=== PATIENT | male | born 1960 | race Caucasian/White ===

== ENCOUNTER 2016-11-15 10:30 | Inpatient (IN) | payer OTHER ==
[~2016-11-15] VITALS: Ht 180.3 cm; Wt 102.1 kg
[~2016-11-15 10:30] MED LIST: ALTACE5 MG PO; AMARYL 2 MG2 MG PO; ESCITALOPRAM10 MG PO; HEP-FORTE1 CAP PO; LEVOTHYROXIN0.175 MG PO; PREDNISONE 20MG20 MG PO; VAYAROL 232.5 M1 CAP PO; [UNRECOGNIZED DRUG - CODE] PO
--- NOTE | 2016-11-15 11:03 | ED CARDIAC/CP/PALPITATIONS ---
History of Present Illness General Chief Complaint: Chest Pain Stated Complaint: CHEST PRESSURE Source: patient Exam Limitations: no limitations Vital Signs & Intake/Output Vital Signs & Intake/Output Vital Signs Date Time Temp Pulse Resp B/P B/P Pulse O2 O2 Flow FiO2 Mean Ox Delivery Rate 11/15 1500 97.9 64 18 146/84 98 Room Air 11/15 1411 72 18 141/87 98 Room Air 11/15 1330 69 18 149/83 98 Room Air 11/15 1206 74 18 152/92 98 Room Air 11/15 1137 97.8 73 18 154/92 98 Room Air 11/15 1122 97 Room Air 11/15 1038 98.2 77 20 163/90 97 Room Air Allergies Coded Allergies: No Known Allergies (11/15/16) Triage Note: PT TO ED C/O "CHEST HEAVINESS" X 4 DAYS. PT STATES WORSE SINCE 0300, DID NOT WAKE HIM UP OUT OF SLEEP. DENIES N/V/D. DENIES FEELING SOB, NO DIFF BREATHING NOTED. PT STATES "I JUST DON'T FEEL RIGHT". RATES PAIN 4/10, "COMES AND GOES". Triage Nurses Notes Reviewed? yes HPI: 56 yo male presents to the ED with complains of chest heaviness for the past 3-4 days. He states that previously his pain was intermittent in nature lasting for almost an hour before resolving on its own. He woke up this morning at 3am due to his symptoms which have been constant since then. He reports mild pain around 3/10 which radiates towards his back of his arms and that it gets worse with lying down. He denies any relieving factors or any other symptoms. (MAGGEI BERRY,[facility]) Reconcile Medications Atorvastatin Calcium 20 MG TABLET 1 TAB PO ONCE A WEEK HIGH CHOLESTROL ( Reported) Escitalopram Oxalate 10 MG TABLET 1 TAB PO QAM MENTAL HEALTH (Reported) Folic Acid 0.8 MG TABLET 1 TAB PO QAM VITAMIN SUPPORT (Reported) Glimepiride 2 MG TABLET 1 TAB PO QPM DIABETES (Reported) Levothyroxine Sodium (Synthroid) 175 MCG TABLET 1 TAB PO QAM THYROID HEALTH ( Reported) Ramipril 10 MG CAPSULE 1 TAB PO QAM HIGH BLOOD PRESSURE (Reported) Sitagliptin Phos/Metformin HCl (Janumet 50-1,000 MG Tablet) 50 MG-1,000 MG TABLET 1 TAB PO BID DIABETES (Reported) Tamsulosin HCl 0.4 MG CAP.ER.24H 1 CAP PO QAM BLADDER HEALTH (Reported) (NEVAEH BERRY,HERSON [place]) Past History Travel History Traveled to [place] past 21 day No Medical History Any Pertinent Medical History? see below for history Neurological: NONE Musculoskeletal: osteomyelitis Endocrine: diabetes, hypothyroidism Surgical History Surgical History: non-contributory Psychosocial History Who do you live with Spouse Services at Home None What is your primary language Martiniquais Tobacco Use: Current Daily Use Daily Tobacco Use Amount/Type: Cigar or Pipe use daily ETOH Use: heavy use Illicit Drug Use: denies illicit drug use Family History Hx Contributory? Yes (DORI SERRANO MD) Review of Systems Review of Systems Constitutional: Reports: no symptoms. Respiratory: Reports: no symptoms. Cardiovascular: Reports: chest pain. GI: Reports: no symptoms. Genitourinary: Reports: no symptoms. Musculoskeletal: Reports: no symptoms. (DORI SERRANO MD) Physical Exam Physical Exam General Appearance: well developed/nourished, mild distress Head: atraumatic, normal appearance Eyes: Bilateral: normal appearance. Neck: normal inspection Respiratory: normal breath sounds Cardiovascular: regular rate/rhythm Back: normal inspection Extremities: multiple wounds present on all extremities Neurologic/Psych: awake, alert Core Measures ACS in differential dx? Yes Severe Sepsis Present: No Septic Shock Present: No (DORI SERRANO MD) Progress Differential Diagnosis: aortic dissection, unstable angina Plan of Care: Orders Procedure Date/time Status Admit to inpatient 11/15 1513 Active EKG 11/15 1339 Active Add-on Test (ER Only) 11/15 1303 Active PARTIAL THROMBOPLASTIN TIME 11/15 1135 Complete PROTHROMBIN TIME 11/15 1135 Complete TROPONIN LEVEL 11/15 1120 Complete COMPREHENSIVE METABOLIC PANEL 11/15 1120 Complete CBC WITHOUT DIFFERENTIAL 11/15 1120 Complete EKG 11/15 1031 Active Current Medications Sig/Elsie Start time Last Medication Dose Stop Time Status Admin Nitroglycerin 25 MG ONCE ONE 11/15 1515 AC (Nitroglycerin Drip 11/15 1516 25 mg in D5 250ml) Dextrose/Water 250 ML (D5W) Heparin Sodium/ 25,000 UNIT Q24H 11/15 1245 UNVr 11/15 Dextrose 1306 (Heparin) Dextrose/Water 500 ML (D5W) Laboratory Tests 11/15/16 1135: Anion Gap 9, Estimated GFR > 60, BUN/Creatinine Ratio 27.5 H, Glucose 136 H, Calcium 9.7, Total Bilirubin 0.6, AST 39, ALT 40, Alkaline Phosphatase 43, Troponin I 1.61 *H, Total Protein 6.4, Albumin 4.1, Globulin 2.3, Albumin/ Globulin Ratio 1.8, PT 10.5, INR 1.00, APTT 29, CBC w Diff NO MAN DIFF REQ, RBC 4.48 L, MCV 93.9, MCH 31.7 H, RDW 12.8, MPV 8.7, Gran % 73.6, Lymphocytes % 17.8 L, Monocytes % 7.2, Eosinophils % 1.0, Basophils % 0.4, Absolute Granulocytes 5.9, Absolute Lymphocytes 1.4, Absolute Monocytes 0.6, Absolute Eosinophils 0.1, Absolute Basophils 0, PUBS MCHC 33.8 Initial ED EKG: ST elevation (DORI SERRANO MD) Initial ED EKG: Q WAVES INFERIOR LEADS WITH MINIMAL ST ELEVATION (<0.5MM), DOWNSLOPING TO ST [place] 1, aVL. CHANGED FROM PRIOR EKG Prior EKG: changed Repeat EKG: unchanged Rhythm Strip: normal sinus rhythm Comments: Dr. Pulido at bedside. Heparin started. Patient given aspirin and BRILLENTA. If patient is pain-free then he will go to the Med Admin tomorrow. If patient continues to have pain that he will go to the Med Admin tonight. Patient continues to be 2 out of 10 despite 5 sublingual nitroglycerin and an inch of paste. Nitro drip started. (NEVAEH BERRY,HERSON [place]) Departure Departure Referrals: WIL COLLINS MD (PCP/Family) Departure Forms: Customer Survey General Discharge Information (DORI SERRANO MD) Departure Disposition: STILL A PATIENT Condition: Guarded Clinical Impression Primary Impression: Myocardial infarction less than 4 weeks ago Admission Note Spoke With: ARACELI PULIDO MD Documentation of Exam: Documentation of any treatments & extenuating circumstances including Concerns Regarding Discharge (functional status, medication knowledge or non-compliance, living conditions, etc.) that warrant an admission rather than observation: [ICU ADMISSION, NITRO DRIP, HEPARIN DRIP, SERIAL ENZYMES, TELE MONITORIN, CARDIOLOGY EVALUATION, CARDIAC CATH TOMORROW.] Resident Co-Sign Statement Statement: ED Attending supervision documentation- [X] I saw and evaluated the patient. I have also reviewed all the pertinent lab results and diagnostic results. I agree with the findings and the plan of care as documented in the Resident's documentation. [X] I have reviewed the ED Record and agree with the Resident's documentation. [] Additions or exceptions (if any) to the Resident's note and plan are summarized below: [Personal seen and examined this patient. I read the above note and agree with what has been written. Patient has had 3 days of intermittent chest pain. The pain woke him up this morning at 3 AM and it went constant since then. The pain is a substernal heaviness. There is no radiation. There are no aggravating or mitigating factors. He rates it as a 6 out of 10. His EKG showed a subacute infarct. Troponin is positive. Cardiology has been constant.] (NEVAEH BERRY,HERSON [place]) Critical Care Note Critical Care Note Critical Care Time: mins: (120 MIN) (NEVAEH BERRY,HERSON [place])
[2016-11-15 11:53] LABS: ABSOLUTE BASOPHIL COUNT 0 /CUMM (0.0-0.2); ABSOLUTE EOSINOPHIL COUNT 0.1 /CUMM (0.0-0.7); ABSOLUTE GRANULOCYTE CT 5.9 /CUMM (1.4-6.5); ABSOLUTE LYMPH COUNT 1.4 /CUMM (1.2-3.4); ABSOLUTE MONOCYTE COUNT 0.6 /CUMM (0.10-0.60); BASOPHIL % 0.4 % (0.0-2.0); GRANULOCYTE % 73.6 % (42.2-75.2); HEMATOCRIT 42.1 % (42-52); MEAN CORPUSCULAR HGB 31.7 PG (27.0-31.0); MEAN CORPUSCULAR HGB CONC 33.8 G/DL (33.0-37.0); MEAN CORPUSCULAR VOLUME 93.9 FL (80.0-94.0); MEAN PLATELET VOLUME 8.7 FL (7.4-10.4); PLATELET COUNT 120 /CUMM (130-400); RBC DISTRIBUTION WIDTH 12.8 % (11.5-14.5); RED BLOOD CELL CT 4.48 /CUMM (4.70-6.10)
[2016-11-15 13:19] LABS: PT 10.5 SEC (9.4-12.5); PTT 29 SEC (25-37)
[2016-11-15] MEDS ORDERED: ESCITALOPRAM OX10 MG (14:26)
[2016-11-15] MEDS ORDERED: RAMIPRIL10 M1 PO (14:26)
[2016-11-15] MEDS ORDERED: GLIMEPIRIDE2 MG PO (14:29)
[2016-11-15] MEDS ORDERED: ATORVASTATIN CA20 M1 PO (14:31)
[2016-11-15] MEDS ORDERED: TAMSULOSIN HCL0.4 M1 PO (14:33)
[2016-11-15] MEDS ORDERED: SYNTHROID175 MCG PO (14:34)
[2016-11-15] MEDS ORDERED: JANUMET 50-1,01 EACH PO ×2 (14:35→14:47)
[2016-11-15] MEDS ORDERED: ESCITALOPRAM OX10 MG PO (14:45)
[2016-11-15] MEDS ORDERED: FOLIC ACID0.8 M2 PO (14:49)
[2016-11-15 17:02] VITALS: BP 147/85
--- NOTE | 2016-11-15 17:37 | History & Physical ---
NADYA SNYDER 11/15/16 5153: General Information and HPI MD Statement: I have seen and personally examined DARWIN MANCUSO and documented this H&P. The patient is a 56 year old M who presented with a patient stated chief complaint of [chest pressure]. Source of Information: patient, family, old records Exam Limitations: no limitations History of Present Illness: Mr. Mancuso, is a 56-year-old gentleman with significant past medical history of hyperlipidemia, diabetes, hypothyroidism, pre-hypertension, osteomyelitis and depression who presented to the hospital with complaints of chest pressure. He states that the pressure started night. He had multiple episodes, approximately 3 per day, lasting approximately 1 hour on a daily basis since until the time of presentation. He states that the worst his pressure was 6 out of 10. He localizes it substernally. He denies any radiation denies any specific chest pain. He denies any diaphoresis, palpitations, tremors, lightheadedness, dizziness, change in vision or hearing and paresthesias. He denies any abdominal pain, nausea or vomiting. He states that yesterday he did have a brief episode of dyspnea on exertion associated with the same type of chest pressure, 4 out of 10. He states that he woke up 3 AM this morning, and noticed similar chest pressure at which point he decided to come to the hospital. He denies any previous history of any chest pain or pressure. He denies any other complaints. He does have a significant family history of coronary artery disease status post coronary artery bypass in his father, who at 82. He also has a past family history of diabetes in his mother who at 91. He has a social history of tobacco use, 1 cigar daily for quite a while. He drinks coffee, 6-10 cups daily. He also drinks 1 glass of vodka, approximately 3 fingers, nightly. He has a past surgical history of an appendectomy in 2012 and gastric bypass in 2009. His primary care physician is Dr. Collins. In the emergency department, his admission vitals were temperature 98.2, heart rate 77, respiratory rate 20, blood pressure 163/90 saturating 97% on room air. His labs were unremarkable except for a troponin of 1.61. His EKG showed sinus rhythm however did exhibit Q waves in inferior leads. He also had T-wave inversions in aVL and T-wave flattening in V1. He did have ST elevation in lead III, slightly less than 1 mm. He was started on IV heparin and loaded with ticagrelor. He was also given morphine and oxygen. His pressure improved to 2/10, but persisted. Dr. Pulido was informed. As his pressure persisted, he was transition from a nitroglycerin patch to a nitroglycerin drip. At the time of the interview, his chest pressure was 1/10. Allergies/Medications Allergies: Coded Allergies: No Known Allergies (11/15/16) Home Med list Atorvastatin Calcium 20 MG TABLET 1 TAB PO ONCE A WEEK HIGH CHOLESTROL ( Reported) Escitalopram Oxalate 10 MG TABLET 1 TAB PO QAM MENTAL HEALTH (Reported) Folic Acid 0.8 MG TABLET 1 TAB PO QAM VITAMIN SUPPORT (Reported) Glimepiride 2 MG TABLET 1 TAB PO QPM DIABETES (Reported) Levothyroxine Sodium (Synthroid) 175 MCG TABLET 1 TAB PO QAM THYROID HEALTH ( Reported) Ramipril 10 MG CAPSULE 1 TAB PO QAM HIGH BLOOD PRESSURE (Reported) Sitagliptin Phos/Metformin HCl (Janumet 50-1,000 MG Tablet) 50 MG-1,000 MG TABLET 1 TAB PO BID DIABETES (Reported) Tamsulosin HCl 0.4 MG CAP.ER.24H 1 CAP PO QAM BLADDER HEALTH (Reported) Compliance With Home Meds: GOOD Past History Travel History Traveled to [place] past 21 day No Medical History Neurological: NONE Cardiovascular: hypertension, hyperlipidemia Musculoskeletal: osteomyelitis Endocrine: diabetes, hypothyroidism Surgical History Surgical History: appendectomy, gastric bypass 2009 Past Family/Social History Family History Relations & Conditions if any FATHER (CAD s/p CABG, CHF - at 82). MOTHER (DM - at 91). Psychosocial History Services at Home: None Smoking Status: Current Everyday Smoker ETOH Use: heavy use Illicit Drug Use: denies illicit drug use Functional Ability ADLs Independent: dressing, eating, toileting, bathing. Ambulation: independent IADLs Independent: shopping, housework, finances, food prep, telephone, transportation , medication admin. Employment History Employment Employed Review of Systems Review of Systems Cardiovascular: Reports: see HPI. Denies: chest pain, edema, orthopena, palpitations. Respiratory: Reports: see HPI, short of breath. Denies: wheezing. GI: Reports: no symptoms. Genitourinary: Reports: no symptoms. Musculoskeletal: Reports: no symptoms. Neurological/Psychological: Reports: no symptoms. Exam & Diagnostic Data Last 24 Hrs of Vital Signs/I&O Vital Signs Date Time Temp Pulse Resp B/P B/P Pulse O2 O2 Flow FiO2 Mean Ox Delivery Rate 11/15 1702 97.6 75 18 147/85 11/15 1657 97.6 75 18 147/85 99 Nasal 2.0L Cannula 11/15 1636 65 139/95 11/15 1613 65 18 156/91 99 Nasal 2.0L Cannula 11/15 1558 65 158/88 11/15 1543 69 18 147/86 99 Nasal 2.0L Cannula 11/15 1529 66 18 145/91 99 Room Air 11/15 1500 97.9 64 18 146/84 98 Room Air 11/15 1411 72 18 141/87 98 Room Air 11/15 1330 69 18 149/83 98 Room Air 11/15 1206 74 18 152/92 98 Room Air 11/15 1137 97.8 73 18 154/92 98 Room Air 11/15 1122 97 Room Air 11/15 1038 98.2 77 20 163/90 97 Room Air Intake & Output 11/15 1600 11/15 0800 11/15 0000 Intake Total Output Total Balance Patient 102.058 kg Weight Weight Reported by Patient Measurement Method Physical Exam General Appearance Alert, Oriented X3, Cooperative Skin scabs on the LEs bilaterally Skin Temp/Moisture Exam: Warm/Dry HEENT Atraumatic, PERRLA, EOMI Neck Supple, No JVD Cardiovascular Regular Rate, Normal S1, Normal S2, No Murmurs, no gallops or rubs Lungs Clear to Auscultation, Normal Air Movement Abdomen Normal Bowel Sounds, Soft, No Tenderness Neurological Normal Speech, Strength at 5/5 X4 Ext Last 24 Hrs of Labs/Alessio: Laboratory Tests 11/15/16 1725: Troponin I Pending 11/15/16 1135: Anion Gap 9, Estimated GFR > 60, BUN/Creatinine Ratio 27.5 H, Glucose 136 H, Calcium 9.7, Total Bilirubin 0.6, AST 39, ALT 40, Alkaline Phosphatase 43, Troponin I 1.61 *H, Total Protein 6.4, Albumin 4.1, Globulin 2.3, Albumin/ Globulin Ratio 1.8, PT 10.5, INR 1.00, APTT 29, CBC w Diff NO MAN DIFF REQ, RBC 4.48 L, MCV 93.9, MCH 31.7 H, RDW 12.8, MPV 8.7, Gran % 73.6, Lymphocytes % 17.8 L, Monocytes % 7.2, Eosinophils % 1.0, Basophils % 0.4, Absolute Granulocytes 5.9, Absolute Lymphocytes 1.4, Absolute Monocytes 0.6, Absolute Eosinophils 0.1, Absolute Basophils 0, PUBS MCHC 33.8 Diagnostic Data EKG Results His EKG showed sinus rhythm however did exhibit Q waves in inferior leads. He also had T-wave inversions in aVL and T-wave flattening in V1. He did have ST elevation in lead III, slightly less than 1 mm. Assessment/Plan Assessment: Mr. Mancuso, is a 56-year-old gentleman with significant past medical history of hyperlipidemia, diabetes, hypothyroidism, pre-hypertension, osteomyelitis and depression who presented to the hospital with complaints of chest pressure. He was started on IV heparin and loaded with ticagrelor. He was also given morphine and oxygen. His pressure improved to 2/10, but persisted. Dr. Pulido was informed. As his pressure persisted, he was transition from a nitroglycerin patch to a nitroglycerin drip. At the time of the interview, his chest pressure was 1/10. Problem List/Assessment and Plan NSTEMI * The patient was treated with RENU therapy upon arriving to the ED. His symptoms persist however are improving. * As his blood pressure is in the high 130s, there is room to go up on the nitroglycerin drip. * Plan to go up on the nitroglycerin drip with a goal resolution of his pressure as long as his BP can tolerate. * He was also loaded with 2 catheter lower, 180 mg. We will continue this at the maintenance dose of 90 mg twice a day. Take Advil or has been shown to be superior to Plavix in patients with acute coronary syndrome within the first year. * He was also loaded with aspirin 325 mg daily. We will initiate baby aspirin therapy starting tomorrow, 81 mg daily. * We will also continue his IV heparin and trend his troponin/EKG at 5 PM and 11 PM. * Echocardiogram has been ordered. We will also evaluate his TSH and lipid panel in the morning. * He is on a low dose atorvastatin, however his 10 year ASCVD calculated risk is 30.3% based on his 2013 lipid panel and his most recent systolic blood pressure. He is definitely deserving of a high dose statin. We will start 80mg of atorvastatin daily starting tonight. * Plan for cardiac catheterization tomorrow. We'll keep the patient nothing by mouth at midnight. HTN * Continue nitroglycerin drip for pressure/pain control. We will hold his antihypertensives as we do not want to lead to iatrogenic hypotension. * Plan to resume antihypertensives after cardiac cath. * Her will also need beta-devon therapy after his cath as this has been shown to reduce mortality in ACS. DM * Holding oral antihyperglycemic meds as he will get contrast tomorrow for his cath. * We will put him on a novolog sliding scale with FSG TIDACHS Hypothyroidism * Continue home LT4 dose. * We will recheck TSH Alcohol abuse * We will place him on ciwa protocol and intiate IV ativan PRN per protocol. * His last drink was yesterday night. FULL CODE heparin for anticoagulation Heart healthy dinner and NPO after midnight pain pathway ordered. As Ranked By This Provider Problem List: 1. NSTEMI (non-ST elevated myocardial infarction) 2. Diabetes mellitus type 2 3. Benign essential hypertension Core Measures/Miscellaneous Acute Coronary Syndrome ACS Diagnosis: Yes ASA W/I 24hr of admit Yes Beta-Devon W/I 24hrs No No Beta-Devon d/t pt on nitro drip LDL assessed W/I 24 hrs Yes Currently on Statin Yes Cerebrovascular Accident CVA/TIA Diagnosis: No Congestive Heart Failure CHF Diagnosis: No VTE (View Protocol) VTE Risk Factors: Acute medical illness, Age > 40, Smoking No [facility] VTE prophylaxis d/t: No contraindications No VTE Pharm Prophylaxis d/t: No contraindications VTE Diagnosis: No VTE Type: NONE VTE Confirmed by (Test): NONE Sepsis (View Protocol) Severe Sepsis Present: No Septic Shock Septic Shock Present: No Miscellaneous Documentation Attending Case Discussed With: ARACELI PULIDO MD Primary Care Physician: WIL COLLINS MD Patient sees these Specialists na Level of Patient Care: Critical Care (CRI) ARACELI PULIDO MD 11/15/162031: Attending MD Review Statement Attending Statement Attending MD Statement: examined this patient, discuss w/resident/PA/CASTING MACHINE OPERATOR AUTOMATIC, agreed w/resident/PA/CASTING MACHINE OPERATOR AUTOMATIC, discussed with family, reviewed EMR data (avail), discussed with nursing, reviewed images, amended to note Attending Assessment/Plan: The patient is a 56-year-old male with history of diabetes mellitus, hypothyroidism, and hyperlipidemia who presents with complaint of chest pressure. The chest pressure has been intermittent for the past 5 days. The most severe episode of chest discomfort was a 7 out of 10 last . This morning at 3:00 AM he awoke with 8 chest pressure which was a 4 out of 10. The pressure this morning continue 4 hours, and resolved after he was placed on a nitroglycerin drip in the emergency room. He is now pain-free. The chest pressure did not radiate. There is no associated diaphoresis, shortness of breath, palpitations, lightheadedness, or dizziness. He does not recall having similar chest discomfort in the past. No syncope. No orthopnea. No lightheadedness or dizziness. No nausea or vomiting. Review of systems: No fever. No chills. No rash. No tremor. No melena. All other systems were reviewed, and were noted to be negative. Vital Signs Date Time Temp Pulse Resp B/P B/P Pulse O2 O2 Flow FiO2 Mean Ox Delivery Rate 11/16 1999 97 Nasal 2.0L Cannula 11/15 1855 96.7 74 14 124/80 / 1855 97 Nasal 2.0L Cannula 07/ 1835 87 18 155/86 99 Nasal 2.0L Cannula 07/04 1754 98.1 74 18 141/76 99 Nasal 2.0L Cannula 07/04 1727 73 18 135/82 99 Nasal 2.0L Cannula 07/04 1702 97.6 75 18 147/85 07/04 1657 97.6 75 18 147/85 99 Nasal 2.0L Cannula 07/04 1636 65 139/95 07/04 1613 65 18 156/91 99 Nasal 2.0L Cannula 07/04 1558 65 158/88 07/04 1543 69 18 147/86 99 Nasal 2.0L Cannula 07/04 1529 66 18 145/91 99 Room Air 07/04 1500 97.9 64 18 146/84 98 Room Air 07/04 1411 72 18 141/87 98 Room Air 07/04 1330 69 18 149/83 98 Room Air 07/04 1206 74 18 152/92 98 Room Air 11/15 1137 97.8 73 18 154/92 98 Room Air 11/15 1122 97 Room Air 11/15 1038 98.2 77 20 163/90 97 Room Air Physical examination: Gen: The patient is in no acute distress HEENT: Normal nose, ears, and oropharynx. Pupils equal bilaterally. Conjunctiva normal. Neck: Supple with no JVD, no masses, and no thyromegaly Lungs: Clear to auscultation with normal respiratory effort Heart: RRR, S1, S2, no murmurs. No peripheral edema, 2+ pulses in the lower extremities bilaterally Abdomen: Soft, nontender, no masses. No hepatomegaly. No splenomegaly Extremities: No clubbing or cyanosis. Normal muscle strength in the upper and lower extremities Skin: Normal skin turgor with no skin ulcers or lesions noted. Neuro: Cranial nerves intact. Sensation intact Psych: Alert and oriented 3 with appropriate affect Laboratory Tests 11/15 11/15 1725 1135 Chemistry Sodium (137 - 145 mmol/L) 137 Potassium (3.5 - 5.1 mmol/L) 4.8 Chloride (98 - 107 mmol/L) 103 Carbon Dioxide (22 - 30 mmol/L) 26 Anion Gap (5 - 16) 9 BUN (9 - 20 mg/dL) 22 H Creatinine (0.7 - 1.2 mg/dL) 0.8 Estimated GFR (>60 ml/min) > 60 BUN/Creatinine Ratio (7 - 25 %) 27.5 H Glucose (65 - 99 mg/dL) 136 H Calcium (8.4 - 10.2 mg/dL) 9.7 Total Bilirubin (0.2 - 1.3 mg/dL) 0.6 AST (17 - 59 U/L) 39 ALT (21 - 72 U/L) 40 Alkaline Phosphatase (< 127 U/L) 43 Troponin I (<0.11 ng/ml) 3.21 *H 1.61 *H Total Protein (6.3 - 8.2 g/dL) 6.4 Albumin (3.5 - 5.0 g/dL) 4.1 Globulin (1.9 - 4.2 gm/dL) 2.3 Albumin/Globulin Ratio (1.1 - 2.2 %) 1.8 TSH (0.270 - 4.200 uIU/mL) 1.730 Coagulation PT (9.4 - 12.5 SEC) 10.9 10.5 INR (0.90 - 1.17) 1.04 1.00 APTT (25 - 37 SEC) 43 H 29 Hematology CBC w Diff NO MAN DIFF REQ WBC (4.8 - 10.8 /CUMM) 8.0 RBC (4.70 - 6.10 /CUMM) 4.48 L Hgb (14.0 - 18.0 G/DL) 14.2 Hct (42 - 52 %) 42.1 MCV (80.0 - 94.0 FL) 93.9 MCH (27.0 - 31.0 PG) 31.7 H RDW (11.5 - 14.5 %) 12.8 Plt Count (130 - 400 /CUMM) 120 L MPV (7.4 - 10.4 FL) 8.7 Gran % (42.2 - 75.2 %) 73.6 Lymphocytes % (20.5 - 51.1 %) 17.8 L Monocytes % (1.7 - 9.3 %) 7.2 Eosinophils % (0 - 5 %) 1.0 Basophils % (0.0 - 2.0 %) 0.4 Absolute Granulocytes (1.4 - 6.5 /CUMM) 5.9 Absolute Lymphocytes (1.2 - 3.4 /CUMM) 1.4 Absolute Monocytes (0.10 - 0.60 /CUMM) 0.6 Absolute Eosinophils (0.0 - 0.7 /CUMM) 0.1 Absolute Basophils (0.0 - 0.2 /CUMM) 0 PUBS MCHC (33.0 - 37.0 G/DL) 33.8 EKG tracing is reviewed, and reveals normal sinus rhythm at 72 with inferior Q waves suggestive of infarct. There is borderline ST abnormality in the inferior leads which does not meet criteria for STEMI. Assessment: The patient is a 56-year-old male with diabetes mellitus, presenting with chest discomfort for the past 6 days, and elevated troponin consistent with non-ST elevation myocardial infarction. He has inferior Q waves consistent with possible old inferior infarct. He is pain-free on IV nitroglycerin. Recommendations: * Continue nitroglycerin glycerin drip, and titrated to pain control * IV heparin per protocol * Brilinta 180 mg by mouth 1 followed by a 90 mg twice a day * Continue low-dose aspirin * Atorvastatin 80 mg daily * Nothing by mouth after midnight * Transfer to [facility] in the morning for cardiac catheterization and possible percutaneous intervention ARGENIS GOODWIN MD 11/16/16 0852: Attending MD Review Statement Attending Statement Attending MD Statement: examined this patient, discuss w/resident/PA/CASTING MACHINE OPERATOR [employer]OMATIC, discussed with family, reviewed EMR data (avail)
[2016-11-15 18:17] LABS: PT 10.9 SEC (9.4-12.5); PTT 43 SEC (25-37)
[2016-11-15 18:55] VITALS: BP 124/80
--- NOTE | 2016-11-15 19:18 | Discharge Summary ---
Visit Information Visit Dates Admission Date: 11/15/16 Discharge Date: 11/16/16 Hospital Course Course Attending Physician: ARACELI PULIDO MD Primary Care Physician: WIL COLLINS MD Hospital Course: Mr. Mancuso, is a 56-year-old gentleman with significant past medical history of hyperlipidemia, diabetes, hypothyroidism, pre-hypertension, osteomyelitis and depression who presented to the hospital with complaints of chest pressure. In the emergency department, his admission vitals were temperature 98.2, heart rate 77, respiratory rate 20, blood pressure 163/90 saturating 97% on room air. His labs were unremarkable except for a troponin of 1.61. His EKG showed sinus rhythm however did exhibit Q waves in inferior leads. He also had T-wave inversions in aVL and T-wave flattening in V1. He did have ST elevation in lead III, slightly less than 1 mm. Repeat troponin was elevated to a max of 3.38 and then trended down. He was started on IV heparin and loaded with Ticagrelor. His pressure improved but not completely and he was started on a nitroglycerin drip, which was titrated according to his pain level. His pressure/pain eventually resolved. He was maintained on IV heparin and nitroglycerin until the time of discharge. He was also started on high dose atorvastatin (ASCVD 10 year risk score 30.3%). Of note, he does have a significant hx of alcohol abuse - last drink approximately 18 hours prior to admission. He was placed on CIWA protocol and IV ativan as needed per protocol. He was dischrged on Heparin and NTG drip. Accepting physician name is Dr. Hernandez. Allergies: Coded Allergies: No Known Allergies (11/15/16) Disposition Summary Disposition Principal Diagnosis: NSTEMI Additional Diagnosis: HTN Hypothyroidism DM Alcohol abuse Discharge Disposition: other general hospital Discharge Instructions General Discharge Information Code Status: Full Code Patient's Diet: NPO Patient's Activity: As tolerated Follow-Up Instructions/Appts: Please follow up with Dr. Pulido 1 week after your cardiac catheterization and discharge from the hospital. Please follow up with Dr. Collins 1-2 weeks after your cardiac catheterization and discharge from the hospital. Medications at Discharge Discharge Medications: Stop taking the following medications: Atorvastatin Calcium (Atorvastatin Calcium) 20 MG TABLET ORAL ONCE A WEEK Qty = 12 Continue taking these medications: Ramipril (Ramipril) 10 MG CAPSULE 1 Tablet ORAL Every Morning Qty = 90 Glimepiride (Glimepiride) 2 MG TABLET 1 Tablet ORAL Every night Qty = 90 Tamsulosin HCl (Tamsulosin HCl) 0.4 MG CAP.ER.24H 1 Capsule ORAL Every Morning Qty = 90 Levothyroxine Sodium (Synthroid) 175 MCG TABLET 1 Tablet ORAL Every Morning Qty = 90 Sitagliptin Phos/Metformin HCl (Janumet 50-1,000 MG Tablet) 50 MG-1,000 MG TABLET 1 Tablet ORAL TWICE DAILY Qty = 180 Escitalopram Oxalate (Escitalopram Oxalate) 10 MG TABLET 1 Tablet ORAL Every Morning Qty = 90 Folic Acid (Folic Acid) 0.8 MG TABLET 1 Tablet ORAL Every Morning Start taking the following new medications: Aspirin (Aspirin*) 81 MG TAB.CHEW 1 Tablet ORAL DAILY Qty = 30 No Refills Atorvastatin Calcium (Atorvastatin Calcium) 80 MG TABLET 1 Tablet ORAL 5 PM Qty = 30 No Refills Ticagrelor (Brilinta) 90 MG TABLET 1 Tablet ORAL EVERY 12 HOURS Qty = 30 No Refills Heparin (Heparin-1/2NS 25,000 Units/500) 25,000 UNIT/500 ML (50 UNIT/ML) IV.SOLN 1 Units INTRAVEN Continous Qty = 1 No Refills Nitroglycerin/D5w (Ntg 25 MG/250 Ml in D5w) 25 MG/250 ML (0.1 MG/ML) INFUS..BTL 1 Unit INTRAVEN Continous Qty = 1 No Refills Copies To: DENNIS BERRY,WIL PULIDO MD,ARACELI
[2016-11-15 22:34] VITALS: BP 128/69
[2016-11-15 23:59] VITALS: BP 120/80
[2016-11-16] VITALS: BP 120/80
[2016-11-16 02:20] LABS: PTT 33 SEC (25-37)
[2016-11-16 04:00] VITALS: BP 122/72
[2016-11-16 06:00] VITALS: BP 137/90
[2016-11-16 06:15] LABS: ABSOLUTE BASOPHIL COUNT 0 /CUMM (0.0-0.2); ABSOLUTE EOSINOPHIL COUNT 0.1 /CUMM (0.0-0.7); ABSOLUTE GRANULOCYTE CT 5.4 /CUMM (1.4-6.5); ABSOLUTE LYMPH COUNT 1.1 /CUMM (1.2-3.4); ABSOLUTE MONOCYTE COUNT 0.5 /CUMM (0.10-0.60); BASOPHIL % 0.4 % (0.0-2.0); GRANULOCYTE % 75.2 % (42.2-75.2); HEMATOCRIT 40.4 % (42-52); MEAN CORPUSCULAR HGB 32.2 PG (27.0-31.0); MEAN CORPUSCULAR HGB CONC 34.1 G/DL (33.0-37.0); MEAN CORPUSCULAR VOLUME 94.6 FL (80.0-94.0); MEAN PLATELET VOLUME 9.5 FL (7.4-10.4); PLATELET COUNT 107 /CUMM (130-400); RBC DISTRIBUTION WIDTH 12.7 % (11.5-14.5); RED BLOOD CELL CT 4.28 /CUMM (4.70-6.10); WHITE BLOOD CELL COUNT 7.2 /CUMM (4.8-10.8)
--- NOTE | 2016-11-16 07:33 | PN- CRCU ---
Subjective HPI/Critical Care Issues: I saw the patient today at bedside. No overnight events. Afebrile and hemodynamically stable. Vitals within normal limits. Patient going going to [facility] for Objective Current Medications: Current Medications Sig/Elsie Start time Last Medication Dose Route Stop Time Status Admin Acetaminophen 650 MG Q6P PRN 11/15 1745 DCD PO Acetaminophen 1,000 MG Q6P PRN 11/15 1745 DCD IV Aspirin 81 MG DAILY 11/16 1000 DCD 11/16 PO 0942 Atorvastatin Calcium 20 MG ONCE A WEEK 11/22 1000 CAN PO Atorvastatin Calcium 80 MG 1700 11/15 1745 DCD 11/15 PO 2052 Escitalopram Oxalate 10 MG QAM 11/15 1740 DCD 11/16 PO 0942 Folic Acid 1 MG DAILY 11/15 1740 DCD 11/16 PO 0942 Heparin Sodium 6,120 UNIT ONCE ONE 11/16 0945 DC 11/16 (Porcine) IV 11/16 0946 0956 Heparin Sodium 6,120 UNIT ONCE ONE 11/16 0430 DC 11/16 (Porcine) IV 11/16 0431 0430 Heparin Sodium/ 25,000 UNIT Q24H 11/15 1245 DCD 07 Dextrose IV 0440 Dextrose/Water 500 ML Insulin Aspart 0 TIDAC 11/16 0800 DCD SC Levothyroxine Sodium 0.175 MG QAM 11/15 1740 DCD 11/16 PO 0942 Lorazepam 0 Q1P PRN 11/15 174 DCD IV Nitroglycerin 0.5 GM Q6 11/16 1200 CAN TOP Nitroglycerin 25 MG Q24H / 0645 DCD 11/16 Dextrose/Water 250 ML IV 0646 Oxycodone/ 1 TAB Q6P PRN 11/15 1745 DCD Acetaminophen PO Tamsulosin HCl 0.4 MG QAM 11/16 1000 CAN PO Ticagrelor 90 MG Q12H 11/16 0100 DCD 11/16 PO 0140 Ticagrelor 90 MG BID 11/15 2200 DC PO Vital Signs & I&O Last 24 Hrs of Vitals and I&O: Vital Signs Date Time Temp Pulse Resp B/P B/P Pulse O2 O2 Flow FiO2 Mean Ox Delivery Rate 11/16 1000 82 17 144/85 11/16 0800 98.2 61 14 120/80 / 0800 98.2 61 14 120/80 97 Room Air 07/05 0600 98.2 64 13 137/90 07/05 0400 98.2 66 10 122/72 07/05 0400 97 Room Air 07/05 0000 98.0 66 12 120/80 07/05 0000 93 Room Air 07/04 2359 98.0 66 12 120/80 94 Room Air 07/04 2234 97.8 62 10 128/69 07/ 2000 97 Nasal 2.0L Cannula 11/15 1855 96.7 74 14 124/80 07/04 1855 97 Nasal 2.0L Cannula 11/15 1835 87 18 155/86 99 Nasal 2.0L Cannula / 1754 98.1 74 18 141/76 99 Nasal 2.0L Cannula / 1727 73 18 135/82 99 Nasal 2.0L Cannula / 1702 97.6 75 18 147/85 07/04 1657 97.6 75 18 147/85 99 Nasal 2.0L Cannula /04 1636 65 139/95 Intake & Output 11/16 1600 / 0800 07/ 0000 Intake Total 282 1028 Output Total 520 900 Balance -238 128 Intake, IV 282 528 Intake, Oral 500 Output, Urine 520 900 Patient 225 lb Weight Exam General Appearance: well developed/nourished, no apparent distress, alert, awake , comfortable Head: atraumatic, normal appearance Neck: normal inspection, supple Respiratory: normal breath sounds, chest non-tender, no respiratory distress Cardiovascular: regular rate/rhythm Abdomen: normal bowel sounds, soft, non-tender Skin: intact, normal color Results Last 24 Hrs of Lab Results: Laboratory Tests 11/16/16 0805: APTT 43 H 11/16/16 0430: Anion Gap 10, Estimated GFR > 60, Glucose 200 H, Calcium 9.3, Phosphorus 3.8, Magnesium 1.7, Total Bilirubin 0.7, AST 38, ALT 38, Troponin I 2.78 *H, Albumin 3.8, Triglycerides 342 H, Cholesterol 160, LDL Cholesterol, Calc 51 L, HDL Cholesterol 41, Cholesterol/HDL Ratio 4, CBC w Diff NO MAN DIFF REQ, RBC 4.28 L , MCV 94.6 H, MCH 32.2 H, RDW 12.7, MPV 9.5, Gran % 75.2, Lymphocytes % 15.6 L, Monocytes % 6.8, Eosinophils % 2.0, Basophils % 0.4, Absolute Granulocytes 5.4, Absolute Lymphocytes 1.1 L, Absolute Monocytes 0.5, Absolute Eosinophils 0.1, Absolute Basophils 0, PUBS MCHC 34.1 11/16/16 0130: APTT 33 11/15/16 2330: Troponin I 3.38 *H 11/15/16 1725: Troponin I 3.21 *H, PT 10.9, INR 1.04, APTT 43 H Impression/Plan Impression/Plan Impression/Plan: Mr. Mancuso, is a 56-year-old gentleman with significant past medical history of hyperlipidemia, diabetes, hypothyroidism, pre-hypertension, osteomyelitis and depression who presented to the hospital with complaints of chest pressure. In the emergency department, his admission vitals were temperature 98.2, heart rate 77, respiratory rate 20, blood pressure 163/90 saturating 97% on room air. His labs were unremarkable except for a troponin of 1.61. His EKG showed sinus rhythm however did exhibit Q waves in inferior leads. He also had T-wave inversions in aVL and T-wave flattening in V1. He did have ST elevation in lead III, slightly less than 1 mm. Repeat troponin was elevated to a max of 3.38 and then trended down. He was started on IV heparin and loaded with Ticagrelor. His pressure improved but not completely and he was started on a nitroglycerin drip, which was titrated according to his pain level. His pressure/pain eventually resolved. He was maintained on IV heparin and nitroglycerin until the time of discharge. He was also started on high dose atorvastatin (ASCVD 10 year risk score 30.3%). Of note, he does have a significant hx of alcohol abuse - last drink approximately 18 hours prior to admission. He was placed on CIWA protocol and IV ativan as needed per protocol. He was dischrged on Heparin and NTG drip. Accepting physician name is Dr. Hernandez. Code Status: Full Code Problem List: 1. NSTEMI (non-ST elevated myocardial infarction)
[2016-11-16 08:00] VITALS: BP 120/80
--- NOTE | 2016-11-16 08:48 | Admission Certification ---
Admission Certification Certification Statement - As attending physician, I certify that at the time of - admission, based on clinical presentation, severity of - symptoms, need for further diagnostic testing and - therapeutic interventions, and risk of adverse outcomes - without in-hospital treatment, in my clinical assessment, - this patient requires an acute hospital stay for a minimum - of two nights or longer. I have also considered psychsocial - factors such as support system, advanced age, financial - issues, cognitive issues, and failed out-patient treatments, - past re-admission history, safety of patient, and lack of - compliance as applicable. Specific rationale supporting this admission is: HI
--- NOTE | 2016-11-16 08:53 | PN- Att Addend ---
Attending Addendum Attending Brief Note On evaluation this morning patient has no symptoms, he is chest pain-free except for headache. General Appearance: Alert, No Acute Distress Skin: Grossly normal HEENT: PEERLA Neck: Supple, No JVD Cardiovascular: Regular Rate, Normal S1, Normal S2, No Murmurs Lungs: Clear to Auscultation, Normal Air Movement Abdomen: Normal Bowel Sounds, Soft, No Tenderness Neurological: Normal Speech, Strength at 5/5 X4 Ext, Cranial Nerves 3-12 NL, Reflexes 2+ Extremities: No Clubbing, No Cyanosis, No Edema Vascular: Normal Pulses Assessment 56-year-old with history of dyslipidemia, diabetes, hypothyroidism, history of osteomyelitis, hypertension and depression presenting with complains of chest pain. He has been positive troponins and is demonstrating subtle EKG changes. He has been loaded with antiplatelets and is currently on IV heparin and nitroglycerin. Patient is chest pain-free and we don't have an echo at this point. Plan for cardiac cath. Plan Transfer for cardiac cath Continue heparin drip Discuss with cardiology about discontinuing nitro drip since patient is chest pain-free Continue other home medications Current Medications Sig/Elsie Start time Last Medication Dose Route Stop Time Status Admin Acetaminophen 650 MG Q6P PRN 11/15 174 AC PO Acetaminophen 1,000 MG Q6P PRN 11/15 1745 AC IV Aspirin 81 MG DAILY 11/16 1000 AC PO Aspirin 0 .STK-MED ONE 11/15 1138 DC PO Aspirin 325 MG ONCE ONE 11/15 1130 DC 11/15 PO 11/15 113 1137 Atorvastatin Calcium 20 MG ONCE A WEEK 11/22 1000 CAN PO Atorvastatin Calcium 80 MG 1700 11/15 1745 AC 11/15 PO 2051 Escitalopram Oxalate 10 MG QAM 11/15 1740 AC PO Folic Acid 1 MG DAILY 11/15 1740 AC 11/15 PO 2051 Heparin Sodium 6,120 UNIT ONCE ONE 11/16 0430 DC 11/16 (Porcine) IV 11/16 0431 0430 Heparin Sodium 0 .STK-MED ONE 11/15 1306 DC (Porcine) .ROUTE Heparin Sodium 4,000 UNIT ONCE ONE 11/15 1245 DC 11/15 (Porcine) IV 11/15 1246 1306 Heparin Sodium/ 25,000 UNIT Q24H 11/15 1245 AC 11/16 Dextrose IV 0440 Dextrose/Water 500 ML Insulin Aspart 0 TIDAC 11/16 0800 AC SC Levothyroxine Sodium 0.175 MG QAM 11/15 1740 AC PO Lorazepam 0 Q1P PRN 11/15 1745 AC IV Morphine Sulfate 0 .STK-MED ONE 11/15 1501 DC .ROUTE Morphine Sulfate 4 MG ONCE ONE 11/15 1445 DC 11/15 IV 11/15 1446 1500 Morphine Sulfate 0 .STK-MED ONE 11/15 1247 DC .ROUTE Morphine Sulfate 4 MG ONCE ONE 11/15 1245 DC 11/15 IV 11/15 1246 1254 Nitroglycerin 25 MG Q24H 11/16 0645 AC 11/16 Dextrose/Water 250 ML IV 0646 Nitroglycerin 25 MG ONCE ONE 11/15 1515 DC 11/15 Dextrose/Water 250 ML IV 11/15 1516 1529 Nitroglycerin 1 GM ONCE ONE 11/15 1415 DC 11/15 TOP 11/15 1416 1346 Nitroglycerin 0.4 MG ONCE ONE 11/15 1415 DC 11/15 SL 11/15 1416 1346 Nitroglycerin 0.4 MG ONCE ONE 11/15 1415 DC 11/15 SL 11/15 1416 1412 Nitroglycerin 0 .STK-MED ONE 11/15 1347 DC TOP Nitroglycerin 0.4 MG ONCE ONE 11/15 1300 DC 11/15 SL 11/15 1301 1308 Nitroglycerin 0.4 MG ONCE ONE 11/15 1300 DC 11/15 SL 11/15 1301 1328 Nitroglycerin 0.4 MG ONCE ONE 11/15 1130 DC 11/15 SL 11/15 1131 1137 Oxycodone/ 1 TAB Q6P PRN 11/15 1745 AC Acetaminophen PO Tamsulosin HCl 0.4 MG QAM 11/16 1000 CAN PO Ticagrelor 90 MG Q12H 11/16 0100 AC 11/16 PO 0140 Ticagrelor 90 MG BID 11/15 2200 DC PO Ticagrelor 0 .STK-MED ONE 11/15 1320 DC PO Ticagrelor 180 MG ONCE ONE 11/15 1300 DC 11/15 PO 11/15 1301 1315 Laboratory Tests 11/16 11/16 11/16 0805 0430 0130 Chemistry Sodium (137 - 145 mmol/L) 136 L Potassium (3.5 - 5.1 mmol/L) 4.6 Chloride (98 - 107 mmol/L) 103 Carbon Dioxide (22 - 30 mmol/L) 23 Anion Gap (5 - 16) 10 BUN (9 - 20 mg/dL) 19 Creatinine (0.7 - 1.2 mg/dL) 0.8 Estimated GFR (>60 ml/min) > 60 Glucose (65 - 99 mg/dL) 200 H Calcium (8.4 - 10.2 mg/dL) 9.3 Phosphorus (2.5 - 4.5 mg/dL) 3.8 Magnesium (1.6 - 2.3 mg/dL) 1.7 Total Bilirubin (0.2 - 1.3 mg/dL) 0.7 AST (17 - 59 U/L) 38 ALT (21 - 72 U/L) 38 Troponin I (<0.11 ng/ml) 2.78 *H Albumin (3.5 - 5.0 g/dL) 3.8 Triglycerides (<150 mg/dL) 342 H Cholesterol (< 200 MG/DL) 160 LDL Cholesterol, Calc (65 - 129 mg/dL) 51 L HDL Cholesterol (40 - 60 mg/dL) 41 Cholesterol/HDL Ratio (0.00 - 4.88 %) 4 Coagulation APTT (25 - 37 SEC) Pending 33 Hematology CBC w Diff NO MAN DIFF REQ WBC (4.8 - 10.8 /CUMM) 7.2 RBC (4.70 - 6.10 /CUMM) 4.28 L Hgb (14.0 - 18.0 G/DL) 13.8 L Hct (42 - 52 %) 40.4 L MCV (80.0 - 94.0 FL) 94.6 H MCH (27.0 - 31.0 PG) 32.2 H RDW (11.5 - 14.5 %) 12.7 Plt Count (130 - 400 /CUMM) 107 L MPV (7.4 - 10.4 FL) 9.5 Gran % (42.2 - 75.2 %) 75.2 Lymphocytes % (20.5 - 51.1 %) 15.6 L Monocytes % (1.7 - 9.3 %) 6.8 Eosinophils % (0 - 5 %) 2.0 Basophils % (0.0 - 2.0 %) 0.4 Absolute Granulocytes (1.4 - 6.5 /CUMM) 5.4 Absolute Lymphocytes (1.2 - 3.4 /CUMM) 1.1 L Absolute Monocytes (0.10 - 0.60 /CUMM) 0.5 Absolute Eosinophils (0.0 - 0.7 /CUMM) 0.1 Absolute Basophils (0.0 - 0.2 /CUMM) 0 PUBS MCHC (33.0 - 37.0 G/DL) 34.1 11/15 11/15 11/15 2330 1725 1135 Chemistry Sodium (137 - 145 mmol/L) 137 Potassium (3.5 - 5.1 mmol/L) 4.8 Chloride (98 - 107 mmol/L) 103 Carbon Dioxide (22 - 30 mmol/L) 26 Anion Gap (5 - 16) 9 BUN (9 - 20 mg/dL) 22 H Creatinine (0.7 - 1.2 mg/dL) 0.8 Estimated GFR (>60 ml/min) > 60 BUN/Creatinine Ratio (7 - 25 %) 27.5 H Glucose (65 - 99 mg/dL) 136 H Calcium (8.4 - 10.2 mg/dL) 9.7 Total Bilirubin (0.2 - 1.3 mg/dL) 0.6 AST (17 - 59 U/L) 39 ALT (21 - 72 U/L) 40 Alkaline Phosphatase (< 127 U/L) 43 Troponin I (<0.11 ng/ml) 3.38 *H 3.21 *H 1.61 *H Total Protein (6.3 - 8.2 g/dL) 6.4 Albumin (3.5 - 5.0 g/dL) 4.1 Globulin (1.9 - 4.2 gm/dL) 2.3 Albumin/Globulin Ratio (1.1 - 2.2 %) 1.8 TSH (0.270 - 4.200 uIU/mL) 1.730 Coagulation PT (9.4 - 12.5 SEC) 10.9 10.5 INR (0.90 - 1.17) 1.04 1.00 APTT (25 - 37 SEC) 43 H 29 Hematology CBC w Diff NO MAN DIFF REQ WBC (4.8 - 10.8 /CUMM) 8.0 RBC (4.70 - 6.10 /CUMM) 4.48 L Hgb (14.0 - 18.0 G/DL) 14.2 Hct (42 - 52 %) 42.1 MCV (80.0 - 94.0 FL) 93.9 MCH (27.0 - 31.0 PG) 31.7 H RDW (11.5 - 14.5 %) 12.8 Plt Count (130 - 400 /CUMM) 120 L MPV (7.4 - 10.4 FL) 8.7 Gran % (42.2 - 75.2 %) 73.6 Lymphocytes % (20.5 - 51.1 %) 17.8 L Monocytes % (1.7 - 9.3 %) 7.2 Eosinophils % (0 - 5 %) 1.0 Basophils % (0.0 - 2.0 %) 0.4 Absolute Granulocytes (1.4 - 6.5 /CUMM) 5.9 Absolute Lymphocytes (1.2 - 3.4 /CUMM) 1.4 Absolute Monocytes (0.10 - 0.60 /CUMM) 0.6 Absolute Eosinophils (0.0 - 0.7 /CUMM) 0.1 Absolute Basophils (0.0 - 0.2 /CUMM) 0 PUBS MCHC (33.0 - 37.0 G/DL) 33.8 Vital Signs Date Time Temp Pulse Resp B/P B/P Pulse O2 O2 Flow FiO2 Mean Ox Delivery Rate 07/05 0600 98.2 64 13 137/90 07/05 0400 98.2 66 10 122/72 07/05 0400 97 Room Air 07/05 0000 98.0 66 12 120/80 07/05 0000 93 Room Air 07/04 2359 98.0 66 12 120/80 94 Room Air 07/04 2234 97.8 62 10 128/69 07/04 1999 97 Nasal 2.0L Cannula 07/04 1855 96.7 74 14 124/80 07/04 1855 97 Nasal 2.0L Cannula 07/04 1835 87 18 155/86 99 Nasal 2.0L Cannula 07/04 1754 98.1 74 18 141/76 99 Nasal 2.0L Cannula 07/04 1727 73 18 135/82 99 Nasal 2.0L Cannula 07/04 1702 97.6 75 18 147/85 07/04 1657 97.6 75 18 147/85 99 Nasal 2.0L Cannula 07/04 1636 65 139/95 07/04 1613 65 18 156/91 99 Nasal 2.0L Cannula 07/04 1558 65 158/88 07/04 1543 69 18 147/86 99 Nasal 2.0L Cannula 07/04 1529 66 18 145/91 99 Room Air 07/04 1500 97.9 64 18 146/84 98 Room Air 07/04 1411 72 18 141/87 98 Room Air 07/04 1330 69 18 149/83 98 Room Air 07/04 1206 74 18 152/92 98 Room Air 07/04 1137 97.8 73 18 154/92 98 Room Air 07/04 1122 97 Room Air 07/04 1038 98.2 77 20 163/90 97 Room Air
[2016-11-16 08:55] LABS: PTT 43 SEC (25-37)
[2016-11-16] MEDS ORDERED: NTG 25 MG/25 MG/250 IV ×2 (09:01→10:10)
[2016-11-16] MEDS ORDERED: ATORVASTATIN CA80 M1 PO (09:01)
[2016-11-16] MEDS ORDERED: ASPIRIN81 M4 PO (09:01)
[2016-11-16] MEDS ORDERED: HEPARIN-1/25000 UNI1 IV (09:01)
--- NOTE | 2016-11-16 09:05 | Patient Discharge Instructions ---
Discharge Instructions General Discharge Information You were seen/treated for: ACS Special Instructions: 1. Please followup with your reguar doctor and carton forming machine tender after discharge Diet Recommended Diet: Heart Healthy Activity Full Activity/No Limits: Yes Acute Coronary Syndrome Inclusion Criteria At DC or during hospital stay patient has or had the following: ACS DIAGNOSIS Yes Discharge Core Measures Meds if any: Prescribed or Continued at Discharge Aspirin Yes Beta-Devon Yes Statin Yes Meds if any: NOT Prescribed or Continued at Discharge Congestive Heart Failure Inclusion Criteria At DC or during hospital stay patient has or had the following: CHF DIAGNOSIS No Discharge Core Measures Meds if any: Prescribed or Continued at Discharge Meds if any: NOT Prescribed or Continued at Discharge Cerebrovascular accident Inclusion Criteria At DC or during hospital stay patient has or had the following: CVA/TIA Diagnosis No Discharge Core Measures Meds if any: Prescribed or Continued at Discharge Meds if any: NOT Prescribed or Continued at Discharge Venous thromboembolism Inclusion Criteria VTE Diagnosis No VTE Type NONE VTE Confirmed by (Test) NONE Discharge Core Measures - Per Current guidelines, there needs to be overlap - treatment for the first 5 days of Warfarin therapy. - If discharged on Warfarin prior to 5 days of - overlap therapy, the patient will need to be - assessed for post discharge needs including - *Post discharge parental anticoagulation - *Warfarin and/or parental anticoagulation education - *Follow up date to check INR post discharge At least 5 days overlap therapy as Inpatient No Meds if any: Prescribed or Continued at Discharge Note: Overlap Therapy is Warfarin and Anticoagulant Meds if any: NOT Prescribed or Continued at Discharge
--- NOTE | 2016-11-16 09:32 | PN- Cardiology ---
Subjective Subjective: The patient seems to be doing well today. He is currently nothing by mouth pending cardiac catheterization at [facility] today. No recurrent chest discomfort since last evening. His only complaint is persistent mild to moderate headache. No significant arrhythmias detected. Objective Vital Signs and I&Os Vital Signs Date Time Temp Pulse Resp B/P B/P Pulse O2 O2 Flow FiO2 Mean Ox Delivery Rate 07/ 0600 98.2 64 13 137/90 07/05 0400 98.2 66 10 122/72 07/05 0400 97 Room Air 07/05 0000 98.0 66 12 120/80 07/05 0000 93 Room Air 07/04 2359 98.0 66 12 120/80 94 Room Air 07/04 2234 97.8 62 10 128/69 07/04 2000 97 Nasal 2.0L Cannula 07/04 1855 96.7 74 14 124/80 07/04 1855 97 Nasal 2.0L Cannula 07/04 1835 87 18 155/86 99 Nasal 2.0L Cannula 07/04 1754 98.1 74 18 141/76 99 Nasal 2.0L Cannula 07/04 1727 73 18 135/82 99 Nasal 2.0L Cannula 07/04 1702 97.6 75 18 147/85 07/04 1657 97.6 75 18 147/85 99 Nasal 2.0L Cannula 07/04 1636 65 139/95 07/04 1613 65 18 156/91 99 Nasal 2.0L Cannula 07/04 1558 65 158/88 07/04 1543 69 18 147/86 99 Nasal 2.0L Cannula 07/04 1529 66 18 145/91 99 Room Air 07/04 1500 97.9 64 18 146/84 98 Room Air 07/04 1411 72 18 141/87 98 Room Air 07/04 1330 69 18 149/83 98 Room Air 07/04 1206 74 18 152/92 98 Room Air 07/04 1137 97.8 73 18 154/92 98 Room Air 07/04 1122 97 Room Air 07/04 1038 98.2 77 20 163/90 97 Room Air Intake & Output 07/05 1600 07/05 0800 07/05 0000 07/04 1600 07/04 0800 07/04 0000 Intake Total 282 1028 Output Total 520 900 Balance -238 128 Intake, IV 282 528 Intake, Oral 500 Output, Urine 520 900 Patient 225 lb 225 lb Weight Weight Reported by Patient Measurement Method Physical Exam: General Appearance Alert, Oriented X3, Cooperative Skin scabs on the LEs bilaterally HEENT Atraumatic, PERRLA, EOMI Neck Supple, No JVD Cardiovascular Regular Rate, Normal S1, Normal S2, No Murmurs, no gallops or rubs Lungs Clear to Auscultation, Normal Air Movement Abdomen Normal Bowel Sounds, Soft, No Tenderness Neurological Normal Speech, Strength at 5/5 X4 Ext Current Medications: Current Medications Sig/Elsie Start time Last Medication Dose Route Stop Time Status Admin Acetaminophen 650 MG Q6P PRN 11/15 174 AC PO Acetaminophen 1,000 MG Q6P PRN 11/15 1745 AC IV Aspirin 81 MG DAILY 11/16 1000 AC PO Aspirin 0 .STK-MED ONE 11/15 1138 DC PO Aspirin 325 MG ONCE ONE 11/15 1130 DC 11/15 PO 11/15 1131 1137 Atorvastatin Calcium 20 MG ONCE A WEEK 11/22 1000 CAN PO Atorvastatin Calcium 80 MG 1700 11/15 174 AC 11/15 PO 205 Escitalopram Oxalate 10 MG QAM 11/15 174 AC PO Folic Acid 1 MG DAILY 11/15 1740 AC 11/15 PO 205 Heparin Sodium 6,120 UNIT ONCE ONE 11/16 0430 DC 11/16 (Porcine) IV 11/16 0431 0430 Heparin Sodium 0 .STK-MED ONE 11/15 1306 DC (Porcine) .ROUTE Heparin Sodium 4,000 UNIT ONCE ONE 11/15 1245 DC 11/15 (Porcine) IV 11/15 1246 1306 Heparin Sodium/ 25,000 UNIT Q24H 11/15 1245 AC 11/16 Dextrose IV 0440 Dextrose/Water 500 ML Insulin Aspart 0 TIDAC 11/16 0800 AC SC Levothyroxine Sodium 0.175 MG QAM 11/15 1740 AC PO Lorazepam 0 Q1P PRN 11/15 1745 AC IV Morphine Sulfate 0 .STK-MED ONE 11/15 1501 DC .ROUTE Morphine Sulfate 4 MG ONCE ONE 11/15 1445 DC 11/15 IV 11/15 1446 1500 Morphine Sulfate 0 .STK-MED ONE 11/15 1247 DC .ROUTE Morphine Sulfate 4 MG ONCE ONE 11/15 1245 DC 11/15 IV 11/15 1246 1254 Nitroglycerin 25 MG Q24H 11/16 0645 AC 11/16 Dextrose/Water 250 ML IV 0646 Nitroglycerin 25 MG ONCE ONE 11/15 1515 DC 11/15 Dextrose/Water 250 ML IV 11/15 1516 1529 Nitroglycerin 1 GM ONCE ONE 11/15 1415 DC 11/15 TOP 11/15 1416 1346 Nitroglycerin 0.4 MG ONCE ONE 11/15 1415 DC 11/15 SL 11/15 1416 1346 Nitroglycerin 0.4 MG ONCE ONE 11/15 1415 DC 11/15 SL 11/15 1416 1412 Nitroglycerin 0 .STK-MED ONE 11/15 1347 DC TOP Nitroglycerin 0.4 MG ONCE ONE 11/15 1300 DC 11/15 SL 11/15 1301 1308 Nitroglycerin 0.4 MG ONCE ONE 11/15 1300 DC 11/15 SL 11/15 1301 1328 Nitroglycerin 0.4 MG ONCE ONE 11/15 1130 DC 11/15 SL 11/15 1131 1137 Oxycodone/ 1 TAB Q6P PRN 11/15 1745 AC Acetaminophen PO Tamsulosin HCl 0.4 MG QAM 11/16 1000 CAN PO Ticagrelor 90 MG Q12H 11/16 0100 AC 11/16 PO 0140 Ticagrelor 90 MG BID 11/15 2200 DC PO Ticagrelor 0 .STK-MED ONE 11/15 1320 DC PO Ticagrelor 180 MG ONCE ONE 11/15 1300 DC 11/15 PO 11/15 1301 1315 Results Last 48 Hrs of Labs/Mics: Laboratory Tests 11/16/16 0805: APTT 43 H 11/16/16 0430: Anion Gap 10, Estimated GFR > 60, Glucose 200 H, Calcium 9.3, Phosphorus 3.8, Magnesium 1.7, Total Bilirubin 0.7, AST 38, ALT 38, Troponin I 2.78 *H, Albumin 3.8, Triglycerides 342 H, Cholesterol 160, LDL Cholesterol, Calc 51 L, HDL Cholesterol 41, Cholesterol/HDL Ratio 4, CBC w Diff NO MAN DIFF REQ, RBC 4.28 L , MCV 94.6 H, MCH 32.2 H, RDW 12.7, MPV 9.5, Gran % 75.2, Lymphocytes % 15.6 L, Monocytes % 6.8, Eosinophils % 2.0, Basophils % 0.4, Absolute Granulocytes 5.4, Absolute Lymphocytes 1.1 L, Absolute Monocytes 0.5, Absolute Eosinophils 0.1, Absolute Basophils 0, PUBS MCHC 34.1 11/16/16 0130: APTT 33 11/15/16 2330: Troponin I 3.38 *H 11/15/16 1725: Troponin I 3.21 *H, PT 10.9, INR 1.04, APTT 43 H 11/15/16 1135: Anion Gap 9, Estimated GFR > 60, BUN/Creatinine Ratio 27.5 H, Glucose 136 H, Calcium 9.7, Total Bilirubin 0.6, AST 39, ALT 40, Alkaline Phosphatase 43, Troponin I 1.61 *H, Total Protein 6.4, Albumin 4.1, Globulin 2.3, Albumin/ Globulin Ratio 1.8, TSH 1.730, PT 10.5, INR 1.00, APTT 29, CBC w Diff NO MAN DIFF REQ, RBC 4.48 L, MCV 93.9, MCH 31.7 H, RDW 12.8, MPV 8.7, Gran % 73.6, Lymphocytes % 17.8 L, Monocytes % 7.2, Eosinophils % 1.0, Basophils % 0.4, Absolute Granulocytes 5.9, Absolute Lymphocytes 1.4, Absolute Monocytes 0.6, Absolute Eosinophils 0.1, Absolute Basophils 0, PUBS MCHC 33.8 Assessment/Plan Assessment/Plan Assessment: 1. Elevated troponin/non-ST elevation myocardial infarction-the patient currently remains pain-free, pending cardiac catheterization today. Echocardiogram shows preserved left ventricular systolic function. There is a focal area of mild hypokinesia noted at the base of the inferior septum/ inferoposterior wall. 2. Hypertension 3. Diabetes 4. Hypothyroidism Recreations: -Nothing by mouth for cardiac catheterization -Formal echo cardiac murmur for pending -Continue current medications for now. -Further plans after the cardiac catheterization is performed later today. -Follow-up with Dr. Rosa and Dr. Montana as outpatient post cardiac catheterization. Continue telemetry? Yes
[2016-11-16] MEDS ORDERED: BRILINTA90 M1 PO (09:54)
[2016-11-16 10:00] VITALS: BP 144/85
--- NOTE | 2016-11-16 12:58 | ECHOCARDIOGRAM REPORT ---
DARWIN BISWAS Age: 56 : 1960 Gender: M Exam Date: 11/16/2016 08:12 Exam Location: [facility] Ht (in): 71 Wt (lb): 225 BSA: 2.29 BP: 137 / 90 Ordering Physician: NADYA SNYDER MD Referring Physician: NADYA SNYDER MD Technologist: Vaughn Lay [facility] Room Number: 107 Indications: MYOCARDIAL ISCHEMIA/MS Rhythm: Sinus Technical Quality: Technically difficult study FINDINGS Left Ventricle Normal size left ventricle. Left ventricular ejection fraction is estimated at 45-50%. Mild inferior hypokinesis. Right Ventricle Normal right ventricular size and function. Right Atrium Normal right atrial size. Left Atrium Mild left atrial dilatation. Mitral Valve Mitral valve thickened. Trace mitral regurgitation. Aortic Valve Diffuse thickening (sclerosis) of the aortic valve cusps without reduced excursion. No aortic stenosis. Trace aortic regurgitation. Tricuspid Valve Tricuspid valve not well visualized, grossly normal. Trace tricuspid regurgitation. Pulmonic Valve Pulmonic valve not well visualized, grossly normal. Trace pulmonic regurgitation. Pericardium No pericardial effusion. Great Vessels Normal size aortic root. CONCLUSIONS Left ventricular ejection fraction is estimated at 45-50%. Mild inferior hypokinesis. Mild left atrial dilatation. Trace mitral regurgitation. Trace tricuspid regurgitation. Technically difficult study. Chico Rosa M.D. (Electronically Signed) Final Date: 16 November 2016 12:58 MEASUREMENTS (Male / Female) Normal Values 2D ECHO LV Diastolic Diameter PLAX 4.3 cm 4.2 - 5.9 / 3.9 - 5.3 cm LV Systolic Diameter PLAX 3.4 cm 2.1 - 4.0 cm LV Fractional Shortening PLAX 20.9 % 25 - 46 % LV Ejection Fraction 2D Teich 42.9 % IVS Diastolic Thickness 1.2 cm LVPW Diastolic Thickness 1.3 cm LV Relative Wall Thickness 0.6 RV Internal Dim ED PLAX 3.3 cm 1.9 - 3.8 cm LVOT Diameter 2.5 cm Aortic Root Diameter 3.2 cm LA Systolic Diameter LX 4.3 cm 3.0 - 4.0 / 2.7 - 3.8 cm LA Volume 54.0 cm 18 - 58 / 22 - 52 cm Ascending Aorta Diameter 3.2 cm DOPPLER AV Peak Velocity 140.0 cm/s AV Peak Gradient 7.8 mmHg AV Mean Velocity 100.0 cm/s AV Mean Gradient 5.0 mmHg AV Velocity Time Integral 30.7 cm LVOT Peak Velocity 96.3 cm/s LVOT Peak Gradient 3.7 mmHg LVOT Mean Velocity 56.6 cm/s LVOT Mean Gradient 2.0 mmHg LVOT Velocity Time Integral 21.7 cm LVOT Stroke Volume 106.5 cm AV Area Cont Eq vti 3.5 cm AV Area Cont Eq pk 3.4 cm MV Peak Velocity 128.0 cm/s MV Peak Gradient 6.6 mmHg MV Mean Velocity 67.7 cm/s MV Mean Gradient 2.0 mmHg Mitral E Point Velocity 94.8 cm/s Mitral A Point Velocity 111.0 cm/s Mitral E to A Ratio 0.9 MV PHT Velocity 117.0 cm/s MV Deceleration [place] 629.0 cm/s MV Pressure Half Time 55.8 ms MV Area PHT 3.9 cm MV Deceleration Time 250.0 ms PV Peak Velocity 91.0 cm/s PV Peak Gradient 3.3 mmHg PV Mean Velocity 67.5 cm/s PV Mean Gradient 2.0 mmHg PV Velocity Time Integral 20.6 cm LV E' Lateral Velocity 7.7 cm/s Mitral E to LV E' Lateral Ratio 12.3 LV E' Septal Velocity 6.4 cm/s Mitral E to LV E' Septal Ratio 14.7
== END 2016-11-16 10:45 | disposition short-term general hospital (02) | DRG 282 ==
LOC: ERH 10:30 → CRI 15:13 → ERHI 15:13 → ENRESERV 16:57 → ENTRNSPT 18:35 → EDTRNSPTSTS 18:39 → CRI 18:53 → CMPTRNSPT 19:05 → CRI 11-16 10:45
PROVIDERS: Internal Medicine; Internal Medicine Cardiovascular Disease; ADMIT Internal Medicine
DX: I21.4 Non-ST elevation (NSTEMI) myocardial infarction (principal); E11.9 Type 2 diabetes mellitus without complications; I10 Essential (primary) hypertension; E78.5 Hyperlipidemia, unspecified; E03.9 Hypothyroidism, unspecified; Z79.84 Long term (current) use of oral hypoglycemic drugs; F32.9 Major depressive disorder, single episode, unspecified; Z98.84 Bariatric surgery status; F17.200 Nicotine dependence, unspecified, uncomplicated
CPT/HCPCS: CCU; 36415; 82436; 93005; 93010; 93306; J0131; J1644; J3490; J7060